=== PATIENT | male | born 1965 | race Caucasian/White ===

== ENCOUNTER 2017-11-22 17:55 | Emergency (ER) | payer OTHER ==
[~2017-11-22] VITALS: Ht 180.3 cm; Wt 103.7 kg
[~2017-11-22 17:55] MED LIST: AMBIEN5 MG PO; DAILY VITAMIN1 EAC8 PO
[2017-11-22 18:46] LABS: HEMATOCRIT 43.5 % (38.0-50.0); HEMOGLOBIN 15.5 G/DL (12.5-16.6); MCH 32.3 PG (29.0-34.0); MCHC 35.6 G/DL (30.0-36.0); MCV 90.6 FL (86-99); PLATELET COUNT 201 K/uL (156-360); RBC DIS.WIDTH-CV 12.5 % (11.8-14.6); RBC DIS.WIDTH-SD 41.8 % (39-53); WHITE BLOOD COUNT 8.5 K/uL (4.1-10.2)
[2017-11-22 18:56] LABS: CHLORIDE 100 mEq/L (99-109); POTASSIUM 4.1 mEq/L (3.7-5.4); SODIUM 139 mEq/L (136-147)
[2017-11-22 18:58] LABS: GLUCOSE 125 mg/dL (70-99)
[2017-11-22 19:02] LABS: CREATININE 0.9 mg/dL (0.6-1.3); GFR ESTIMATE (CALCULATED) > 59 mL/min/ (58.99-99999)
[2017-11-22 19:03] LABS: UREA NITROGEN (BUN) 10 mg/dL (9-23)
[2017-11-22 19:10] LABS: TROP-I INTERPRETATION NEGATIVE; TROPONIN-I < 0.01 ng/mL (0.0-0.30)
[2017-11-22 21:59] LABS: TROP-I INTERPRETATION NEGATIVE; TROPONIN-I < 0.01 ng/mL (0.0-0.30)
[2017-11-22 22:15] LABS: D-DIMER ELISA < 150.00 ng/mLDDU (<230)
[2017-11-22 22:51] VITALS: BP 184/124
== END 2017-11-22 22:52 | disposition home or self-care (01) ==
LOC: EME 17:55
PROVIDERS: Emergency Medicine
DX: R07.89 Other chest pain (principal); R20.2 Paresthesia of skin; Z72.0 Tobacco use
CPT/HCPCS: 71046; 80048; 84484; 85027; 85379; 93005; 99281; 99284

== ENCOUNTER 2018-03-24 16:49 | Emergency (ER) | payer OTHER ==
[~2018-03-24] VITALS: Ht 180.3 cm; Wt 103.0 kg
[2018-03-24 17:27] LABS: HEMATOCRIT 42.1 % (38.0-50.0); MCH 30.9 PG (29.0-34.0); MCHC 35.6 G/DL (30.0-36.0); MCV 86.8 FL (86-99); PLATELET COUNT 210 K/uL (156-360); RBC DIS.WIDTH-CV 12.3 % (11.8-14.6); RBC DIS.WIDTH-SD 39.2 % (39-53); RED BLOOD COUNT 4.85 M/uL (4.00-5.50); WHITE BLOOD COUNT 10.4 K/uL (4.1-10.2)
[2018-03-24 17:36] LABS: CHLORIDE 103 mEq/L (99-109); POTASSIUM 3.8 mEq/L (3.7-5.4); SODIUM 140 mEq/L (136-147)
[2018-03-24 17:37] LABS: GLUCOSE 110 mg/dL (70-99)
[2018-03-24 17:41] LABS: CREATININE 0.9 mg/dL (0.6-1.3); GFR ESTIMATE (CALCULATED) > 59 mL/min/ (58.99-99999)
[2018-03-24 17:42] LABS: UREA NITROGEN (BUN) 13 mg/dL (9-23)
[2018-03-24 17:47] LABS: TROP-I INTERPRETATION NEGATIVE; TROPONIN-I < 0.01 ng/mL (0.0-0.30)
[2018-03-24 20:33] LABS: TROP-I INTERPRETATION NEGATIVE; TROPONIN-I < 0.01 ng/mL (0.0-0.30)
[2018-03-24 21:17] VITALS: BP 146/99
== END 2018-03-24 21:21 | disposition home or self-care (01) ==
LOC: EME 16:49
PROVIDERS: Emergency Medicine
DX: R07.89 Other chest pain (principal); R42 Dizziness and giddiness; I10 Essential (primary) hypertension; Z87.891 Personal history of nicotine dependence
CPT/HCPCS: 71046; 80048; 84484; 85027; 93005; 99281; 99284; J2270

== ENCOUNTER 2018-03-31 12:08 | Emergency (ER) | payer OTHER ==
[~2018-03-31] VITALS: Ht 180.3 cm; Wt 101.2 kg
[2018-03-31 13:03] LABS: HEMATOCRIT 42.8 % (38.0-50.0); HEMOGLOBIN 15.3 G/DL (12.5-16.6); MCH 31.2 PG (29.0-34.0); MCHC 35.7 G/DL (30.0-36.0); MCV 87.2 FL (86-99); PLATELET COUNT 207 K/uL (156-360); RBC DIS.WIDTH-CV 12.4 % (11.8-14.6); RBC DIS.WIDTH-SD 39.8 % (39-53); RED BLOOD COUNT 4.91 M/uL (4.00-5.50); WHITE BLOOD COUNT 6.9 K/uL (4.1-10.2)
[2018-03-31 13:32] LABS: CHLORIDE 100 MEQ/L (99-109); POTASSIUM 4.5 MEQ/L (3.7-5.4); SODIUM 135 MEQ/L (136-147)
[2018-03-31 13:37] LABS: CREATININE 0.9 MG/DL (0.6-1.3); GFR ESTIMATE (CALCULATED) > 59 mL/min/ (58.99-99999); GLUCOSE 107 mg/dL (70-99); UREA NITROGEN (BUN) 10 mg/dL (9-23)
[2018-03-31] MEDS ORDERED: CLONAZEPAM0.5 MG PO (13:50)
[2018-03-31 14:18] VITALS: BP 146/96
== END 2018-03-31 14:25 | disposition home or self-care (01) ==
LOC: EME 12:08
PROVIDERS: Family Medicine
DX: R42 Dizziness and giddiness (principal); F41.9 Anxiety disorder, unspecified; R20.2 Paresthesia of skin; Z87.891 Personal history of nicotine dependence
CPT/HCPCS: 70450; 80048; 85027; 99281; 99284